=== PATIENT | female | born 1945 | race Caucasian/White ===

== ENCOUNTER → 2016-11-03 | Outpatient (CLI) | payer BC ==
[~2016-11-03] MED LIST: ACET1TAB84 PO; ASPEC81 PO; ATOR-26 PO; CALC1CHW57 PO; CETI10TA10 PO; CHOL2000 PO; CYAN1CAP3 PO; CYAN500T13 PO; GLCSR500 PO; LEVO75TA PO; MELA10TA2 PO; METO50TA7 PO; MULT-506 PO; NSNN50; RAMI10CA PO; RAMI2.5C PO; TRIA37.5 PO
[2016-11-03 12:54] LABS: ESTIMATED AVERAGE GLUCOSE 108 mg/dl; HA1C FLAG Normal (Normal)
[2016-11-03 12:59] LABS: CALCIUM 9.5 mg/dl (8.5-10.1)
[2016-11-03 13:08] LABS: ALT/SGPT 39 U/L (12-78); BLOOD UREA NITROGEN 17 mg/dl (7-18); BUN/CREATININE RATIO 26.4 (10-20); CARBON DIOXIDE 28 mmol/L (21-32); CHLORIDE 106 mmol/L (98-107); CHOLESTEROL 154 mg/dl (0-200); CREATININE 0.66 mg/dl (0.60-1.20); GLUCOSE 87 mg/dl (70-99); SODIUM 142 mmol/L (136-145); TRIGLYCERIDES 85 mg/dl (0-150); VERY LOW DENSITY LIPOPROT CALC 17 mg/dl
[2016-11-03 13:11] LABS: ALB/GLOB RATIO 1.3 (0.9-2); ALKALINE PHOSPHATASE 41 U/L (45-117); AST/SGOT 33 U/L (15-37); CHOLESTEROL/HDL RATIO 2.3; HDL CHOLESTEROL 67 mg/dl; LDL CHOLESTEROL CALCULATED 70 mg/dl
== END | disposition home or self-care (01) ==
LOC: C.LABPBG 07:36
PROVIDERS: ATTEND Physician Assistant
DX: E11.9 Type 2 diabetes mellitus without complications (principal); E78.5 Hyperlipidemia, unspecified; Z00.00 Encounter for general adult medical examination without abnormal findings

== ENCOUNTER → 2016-11-13 | Outpatient (CLI) | payer BC | END | disposition home or self-care (01) | LOC: C.RDSM 13:49 | PROVIDERS: ATTEND Physical Medicine & Rehabilitation | DX: M54.5 Low back pain (principal) ==

== ENCOUNTER → 2017-02-04 | Day surgery (SDC) | payer BC ==
[2017-01-06 13:14] VITALS: Ht 152.4 cm; Wt 56.8 kg
[~2017-02-04] VITALS: Ht 152.4 cm; Wt 56.8 kg
[~2017-02-04] MED LIST changes: -CHOL2000 PO; -CYAN500T13 PO; +IOPAMIDOL INJ 61% 15 ML VIAL ONE; +LIDOCAINE HCL 1% MPF 5 ML VIAL ONE; -MULT-506 PO; -RAMI2.5C PO; +SODIUM CHLORIDE 0.9% INJ 10 ML VIAL ONE; -TRIA37.5 PO
--- NOTE | 2017-02-04 14:28 | History & Physical Bridge - [place] ---
H&P Re-Evaluation Bridge Note: I have examined the patient, reviewed the History & Physical and in the interval since the performance of the History & Physical I have noted the following changes of clinical significance: No changes noted
[2017-02-04 14:55] VITALS: TEMP 37.3
--- NOTE | 2017-02-04 14:58 | Discharge Instructions ---
Discharge Instructions Date of Service Feb 04, 2017. Visit Reason for Visit: Lumbar Radiculopathy Discharge Discharge Diagnosis / Problem: right leg pain Discharge Goals Goal(s): Decrease discomfort, Improve function Medications Stopped Medications Name(s): asa stopped 4 days ago Activity Recommendations Activity Limitations: resume your previous activity Anesthesia . Post Anesthesia Instructions: If you have had General Anesthesia or IV Sedation: * Do not drive today. * Resume driving when surgeon permits. * Do not make important decisions or sign legal documents today. * Call surgeon for: 1. Temperature elevations greater than 101 degrees F. 2. Uncontrollable pain. 3. Excessive bleeding. 4. Persistent nausea and vomiting. 5. Medication intolerance (nausea, vomiting or rash). * For nausea and vomiting use only clear liquids such as: tea, soda, bouillon until nausea subsides, then gradually increase diet as tolerated. * If you have any concerns or questions, call your surgeon's office. If physician is unavailable and it is an emergency, call 911 or go to the nearest emergency room. . Diet Recommendations Recommended Home Diet: resume previous diet Procedures Procedures Performed: LUMBAR EPIDURAL SPINAL INJECTION. Pending Studies Studies pending at discharge: no Medical Emergencies . Who to Call and When: Medical Emergencies: If at any time you feel your situation is an emergency, please call 911 immediately. . Non-Emergent Contact Non-Emergency issues call your: Specialist . . "Provider Documentation" section prepared by Luis Hoff. .
[2017-02-04 15:10] VITALS: BP 176/79; PULSE 61; O2SAT 98
--- NOTE | 2017-02-04 15:26 | OPERATIVE REPORT ---
DATE OF OPERATION: 02/04/2017 PREOPERATIVE DIAGNOSIS: Grade 1 L4-L5 spondylolisthesis, grade 1 L5-S1 spondylolisthesis with a right L5 radiculopathy. POSTOPERATIVE DIAGNOSIS: Same. PROCEDURE: Right paramedian L5-S1 intralaminar epidural steroid injection under fluoroscopic guidance. INDICATIONS: The patient is a 71-year-old white female who has been frustrated that conservative treatment for her radiculopathy has not provided her with relief including extensive physical therapy, and medication trials. She had improvement in axial back pain with use of a brace and continues to have radicular sensations. She presents today for a lumbar epidural steroid injection to provide her with relief of the radicular complaints down the right leg. PHYSICAL EXAMINATION: GENERAL: Pleasant female seated comfortably. MUSCULOSKELETAL: Lumbar paraspinal muscles were palpated. She did have some sciatic notch sensitivity on the right. No focal weakness distally. CONSENT: Verbal and written consent was obtained from the patient. Risks and benefits were reviewed. Risks include but are not limited to epidural abscess, epidural hematoma, allergic reaction, dural puncture. The patient wishes to proceed. PROCEDURE: The patient was taken back to the special procedures room of the [facility]. She was maintained in a prone position. Backside was cleansed with Betadine x3 and a dry sterile dressing was applied. Fluoroscope was used to identify the L5-S1 intralaminar space and overlying skin was anesthetized with 4 mL of lidocaine 1% with a 25 gauge 1.5-inch needle. A 22-gauge 3-1/2 inch Tuohy needle was then directed down towards the intralaminar space. It was advanced under lateral fluoroscopic guidance and loss of resistance was noted at a depth of just under 6 cm. Isovue-300 contrast 1 mL was injected in which demonstrated epidural uptake pattern on the AP view. She then underwent injection after negative aspiration of 40 mg of Depo-Medrol and 4 mL of preservative free sodium chloride. She had a transient reproduction down predominantly right and left leg which was transient. DISPOSITION: 1. She is taken out into the discharge recovery area where she will be discharged home once discharge criteria have been met. 2. Follow up in the [facility] office in 2-4 weeks. I attest to the content of the Intraoperative Record and any orders documented therein. Any exception s are noted below.
== END | disposition home or self-care (01) ==
LOC: X.SURG 13:35
PROVIDERS: ATTEND Physical Medicine & Rehabilitation
DX: M43.16 Spondylolisthesis, lumbar region (principal); M43.17 Spondylolisthesis, lumbosacral region; Z79.899 Other long term (current) drug therapy; E11.9 Type 2 diabetes mellitus without complications

== ENCOUNTER → 2017-03-10 | Outpatient (CLI) | payer BC ==
[~2017-03-10] MED LIST changes: -IOPAMIDOL INJ 61% 15 ML VIAL ONE; -LIDOCAINE HCL 1% MPF 5 ML VIAL ONE; -SODIUM CHLORIDE 0.9% INJ 10 ML VIAL ONE
== END | disposition home or self-care (01) ==
LOC: C.LABPBG 08:58
PROVIDERS: ATTEND Internal Medicine Geriatric Medicine
DX: E03.9 Hypothyroidism, unspecified (principal)

== ENCOUNTER → 2017-05-18 | Outpatient (CLI) | payer BC ==
[2017-05-18 12:25] LABS: BASO % 0.6 %; BASO ABS # 0.04 K/uL (0-0.2); COMPLETE YES; EOS % 1.2 %; HEMATOCRIT 47.4 % (37-47); IG% 0.2 %; LYMPH % 35.3 %; MEAN CELL VOLUME 102.4 fL (80-100); MEAN CORPUSCULAR HEMOGLOBIN 33.9 pg (25-34); MEAN CORPUSCULAR HGB CONC 33.1 g/dl (32-36); MEAN PLATELET VOLUME 11.2 fL (7.4-10.4); MONO % 7.2 %; NEUT % 55.5 %; PLATELET COUNT 151 K/uL (130-400); RED BLOOD COUNT 4.63 M/uL (4.2-5.4); WHITE BLOOD COUNT 6.51 K/uL (4.8-10.8)
[2017-05-18 12:52] LABS: BLOOD UREA NITROGEN 12 mg/dl (7-18); BUN/CREATININE RATIO 17.5 (10-20); CALCIUM 9.5 mg/dl (8.5-10.1); CARBON DIOXIDE 28 mmol/L (21-32); CHLORIDE 103 mmol/L (98-107); CREATININE 0.66 mg/dl (0.60-1.20); GLUCOSE 103 mg/dl (70-99); POTASSIUM 3.6 mmol/L (3.5-5.1); SODIUM 138 mmol/L (136-145)
[2017-05-18 13:02] LABS: ESTIMATED AVERAGE GLUCOSE 117 mg/dl; HA1C FLAG Normal (Normal)
[2017-05-18 13:08] LABS: URINE PROTIEN/CREAT RATIO 0.4 (0-0.2); URINE TOTAL PROTEIN 8.6 mg/dl (0-11.9)
== END | disposition home or self-care (01) ==
LOC: C.LABPBG 08:54
PROVIDERS: ATTEND Internal Medicine Geriatric Medicine
DX: E78.5 Hyperlipidemia, unspecified (principal); I10 Essential (primary) hypertension; E03.9 Hypothyroidism, unspecified; E11.29 Type 2 diabetes mellitus with other diabetic kidney complication; K21.9 Gastro-esophageal reflux disease without esophagitis; R80.9 Proteinuria, unspecified; M85.80 Other specified disorders of bone density and structure, unspecified site